=== PATIENT | male | born 1985 | race Asian ===

== ENCOUNTER 2020-09-21 17:30 | Outpatient (CLI) | payer OTHER | END 2020-09-21 17:31 | disposition home or self-care (01) | LOC: COV 17:30 | PROVIDERS: ATTEND Family Medicine | DX: R05 Cough (principal); M79.10 Myalgia, unspecified site; J02.9 Acute pharyngitis, unspecified; R09.81 Nasal congestion; R11.2 Nausea with vomiting, unspecified; Z20.828 Contact with and (suspected) exposure to other viral communicable diseases ==